=== PATIENT | female | born 1955 | race American Indian/Alaskan Native ===

== ENCOUNTER 2016-12-22 11:21 | Emergency (ER) | payer MEDICAID ==
[2016-12-22 12:33] LABS: Urine Drugs of Abuse Note Disclamer
[2016-12-22 13:07] LABS: Bacteria,Urine 1+ /HPF (Negative); Bilirubin,Urine NEG (Negative); Blood,Urine NEG (Negative); Ketones,Urine 20 mg/dL (Negative); Leukocyte Esterase,Urine NEG (Negative); Mucus,Urine FEW /HPF; Nitrite,Urine NEG (Negative); Urobilinogen,Urine < 2.0 mg/dL (<2.0)
[2016-12-22 13:44] LABS: Basophils % (Auto) 0.4 % (0.0-1.8); Eosinophils % (Auto) 0.2 % (0.0-4.3); Hematocrit 35.6 % (30.3-42.9); Hemoglobin 11.2 gm/dl (10.1-14.3); Mean Corpuscular HGB Conc 32 % (30-34); Mean Corpuscular Volume 73 fl (79-97); Platelet Count 226 K/mm3 (140-440); Red Blood Count 4.87 M/mm3 (3.65-5.03); Red Cell Distribution Width 14.9 % (13.2-15.2); White Blood Count 11.4 K/mm3 (4.5-11.0)
[2016-12-22 13:53] LABS: Mean Corpuscular Hemoglobin 23 pg (28-32)
[2016-12-22 13:56] LABS: Anion Gap 21 mmol/L; BUN/Creatinine Ratio 8.75; Blood Urea Nitrogen 7 mg/dL (7-17); Calcium 9.3 mg/dL (8.4-10.2); Carbon Dioxide 22 mmol/L (22-30); Chloride 99.5 mmol/L (98-107); Glucose 209 mg/dL (65-100); Potassium 3.6 mmol/L (3.6-5.0); Sodium 139 mmol/L (137-145)
--- NOTE | 2016-12-22 16:21 | Emergency Department Report ---
HPI - General Chief Complaint: Psych Time Seen by Provider: 12/22/16 15:07 - HPI HPI: This is a 61-year-old Afro-[place] female presents the emergency department via EMS with complaint of probable anxiety. She says she is unable to sleep and can't sit still. There is no particular thing that she feels she is anxious about but says that she does have a history of anxiety. She also recently was released from [facility] for drug abuse with a history of crack cocaine use. She thinks the fact that she is no longer using drugs is making her anxious. She has a history of previous CVA with left-sided weakness , diabetes, GERD, hypertension, hepatitis C and cirrhosis, brain aneurysm. The patient also says that she fell last night and has some pain to the back of her head and to the right knee. She denies getting knocked out or any loss of consciousness. ED Past Medical Hx - Past Medical History Hx Hypertension: Yes Hx CVA: Yes (LEFT SIDED WEAKNESS) Hx Diabetes: Yes Hx GERD: Yes Hx Liver Disease: Yes (CIRRHOSIS / HEP C) Hx Arthritis: Yes Hx Seizures: Yes Hx Psychiatric Treatment: Yes (depression /BIPOLAR) Additional medical history: brain anuerysm - Surgical History Hx Cholecystectomy: Yes Additional Surgical History: Brain SURGERY - Social History Smoking Status: Current Every Day Smoker - Medications Home Medications: Home Medications Medication Instructions Recorded Confirmed Last Taken Type traMADol [Ultram 50 MG tab] 50 mg PO Q6HR PRN #7 tablet 10/24/15 Unknown Rx ALPRAZolam [Xanax TAB] 0.5 mg PO QHS PRN #6 tablet 12/22/16 Unknown Rx ED Review of Systems ROS: Stated complaint: ANXIETY/FALL Other details as noted in HPI Comment: All other systems reviewed and negative Constitutional: denies: chills, fever Eyes: denies: eye pain, eye discharge, vision change ENT: denies: ear pain, throat pain Respiratory: denies: cough, shortness of breath, wheezing Cardiovascular: denies: chest pain, palpitations Gastrointestinal: denies: abdominal pain, nausea, diarrhea Genitourinary: denies: urgency, dysuria, discharge Musculoskeletal: arthralgia. denies: back pain Skin: denies: rash, lesions Neurological: headache. denies: numbness, paresthesias Psychiatric: anxiety. denies: homicidal thoughts, suicidal thoughts Physical Exam - Physical Exam Vital Signs: Vital Signs 12/22/16 12:22 Temperature 98.1 F Pulse Rate 70 Respiratory 17 Rate Blood Pressure 136/96 O2 Sat by Pulse 100 Oximetry Physical Exam: GENERAL: The patient is well-developed well-nourished. HEENT: Normocephalic. Atraumatic. Extraocular motions are intact. Patient has moist mucous membranes. Pupils equal reactive to light bilaterally. No nystagmus. NECK: Supple. Trachea is midline. CHEST/LUNGS: Clear to auscultation. There is no respiratory distress noted. HEART/CARDIOVASCULAR: Regular. There is no tachycardia. There is no gallop rub or murmur. ABDOMEN: Abdomen is soft, nontender. Patient has normal bowel sounds. There is no abdominal distention. SKIN: There is some mild nonpitting swelling to the anterior right knee with an abrasion in the middle. NEURO: The patient is awake, alert, and oriented. The patient is cooperative. Chronic left upper extremity paralysis. The patient has normal speech. MUSCULOSKELETAL: Mild tenderness to palpation to the right anterior knee. Negative anterior and posterior drawer test. No laxity with valgus or varus stress. There is no limitation range of motion. ED Course Vital Signs 12/22/16 12:22 Temperature 98.1 F Pulse Rate 70 Respiratory 17 Rate Blood Pressure 136/96 O2 Sat by Pulse 100 Oximetry ED Medical Decision Making - Lab Data Result diagrams: 12/22/16 13:14 12/22/16 13:14 - Radiology Data Radiology results: report reviewed, image reviewed interpreted by me: X-ray of the right knee does not show any fracture, dislocation or any acute process. CT of the head does not show any acute process including no hemorrhage, mass, shift, diffuse edema or skull fracture. - Medical Decision Making 61-year-old female presents the emergency department with complaint of anxiety and insomnia. Secondarily she says that she had a fall yesterday and hurt her knee and fell and hit her head. There was no loss of consciousness and no acute neurological deficits. CT of the head did not show any acute bleed, shift , mass or any acute process. X-ray of the right knee does not show any fracture , dislocation or any acute process. The rest the patient's labs are mostly unremarkable do not show any etiology of her symptoms. She was evaluated by the crisis/be over a therapist to did not feel that the patient fit criteria to be maybe [id number] for inpatient treatment for her anxiety. I gave the patient a small/low-dose of Xanax to help her with anxiety and help her get some rest. She'll be given a very small amount of this medication and she does have a substance abuse history and she has been given a referral for the [facility]. She has been instructed to return to the emergency department with any worsening of her symptoms or any acute distress. - Differential Diagnosis anxiety, bipolar disorder, substance abuse Critical Care Time: No Critical care attestation.: If time is entered above; I have spent that time in minutes in the direct care of this critically ill patient, excluding procedure time. ED Disposition Clinical Impression: Anxiety Right knee pain Qualifiers: Chronicity: acute Qualified Code(s): M25.561 - Pain in right knee Head injury Qualifiers: Encounter type: initial encounter Qualified Code(s): S09.90XA - Unspecified injury of head, initial encounter Disposition: TO HOME OR SELFCARE Is pt being admited?: No Condition: Stable Instructions: Minor Head Injury (ED), Arthralgia (ED), Insomnia (ED), Anxiety ( ED) Additional Instructions: These follow-up with your primary care physician in the next few days. I have given you a referral for the [facility] in order to see someone regarding your anxiety and insomnia. I have prescribed for you a very small amount of anti-anxiety medication that also may help you sleep. This medication should only be taken prior to sleep. You've been prescribed a medication that is sedating. Therefore this medication cannot be mixed with alcohol, or taken prior to driving, working, or being responsible for children. I have given you a referral for a local orthopedist, Dr. Lynn, in case she would like to follow up regarding your right knee pain. Prescriptions: ALPRAZolam [Xanax TAB] 0.5 mg PO QHS PRN #6 tablet PRN Reason: Anxiety Referrals: IMELDA LYNN MD [Staff Physician] - 3-5 Days [facility] [Outside] - 3-5 Days Time of Disposition: 18:53
--- NOTE | 2016-12-22 16:36 | Cat Scan Report ---
Cranial CT without contrast. History: Headache after trauma. Findings: Comparison is made to the previous study on October 23, 2015. There is no evidence of acute infarct or hemorrhage. There is evidence of a right frontal craniotomy. Encephalomalacia in the right frontal lobe is unchanged. There is no extension or hemorrhagic transformation. The posterior fossa is normal. The ventricles are unremarkable except for mild ventriculomegaly ex vacuo in the frontal horn of the right lateral ventricle. There are no masses or extra-axial collections. Impression: No acute findings. Post craniotomy changes and right frontal encephalomalacia are stable compared to October 23, 2015.
[2016-12-22] MEDS ORDERED: XANAX PO ONE ×2 (17:34→18:48)
[2016-12-22 20:13] VITALS: BP 130/94
--- NOTE | 2016-12-23 07:22 | XRay Report ---
Right knee 3 views: History: Right knee pain. Findings: Large spur anterosuperior patella. Minimal narrowing of the medial compartment knee joint. Sclerotic adjacent articular surfaces. No fracture. Faint soft tissue calcification medial collateral ligament medial femoral condyle. Impression: Mild degenerative changes medial and patellofemoral compartment knee joint.
== END 2016-12-22 19:20 | disposition home or self-care (01) ==
LOC: ED 11:21
DX: S09.90XA Unspecified injury of head, initial encounter (principal); F41.9 Anxiety disorder, unspecified; M25.561 Pain in right knee; Z86.73 Personal history of transient ischemic attack (TIA), and cerebral infarction without residual deficits; I10 Essential (primary) hypertension; M19.90 Unspecified osteoarthritis, unspecified site; F31.9 Bipolar disorder, unspecified; F17.200 Nicotine dependence, unspecified, uncomplicated
CPT/HCPCS: 29505; 36415; 70450; 73562; 80048; 80307; 81001; 85025; 99285; G0480; 80320

== ENCOUNTER 2017-02-19 15:07 | Emergency (ER) | payer MEDICAID ==
[2017-02-19 16:30] LABS: Anion Gap 24 mmol/L; BUN/Creatinine Ratio 14; Blood Urea Nitrogen 13 mg/dL (7-17); Calcium 8.6 mg/dL (8.4-10.2); Carbon Dioxide 18 mmol/L (22-30); Chloride 103.8 mmol/L (98-107); Glucose 194 mg/dL (65-100); Potassium 4.4 mmol/L (3.6-5.0); Sodium 141 mmol/L (137-145)
[2017-02-19] MEDS ORDERED: TYLENOL PO ONE (16:34)
--- NOTE | 2017-02-19 16:35 | Emergency Department Report ---
ED Seizure HPI - General Chief Complaint: Seizure Stated Complaint: SEIZURE Time Seen by Provider: 02/19/17 16:18 Source: patient, EMS Mode of arrival: Stretcher Limitations: Physical Limitation - History of Present Illness Initial Comments: 62-year-old female with known history of seizure here with complaint of seizure. Patient states she had a tonic-clonic seizure that was witnessed by her grandchildren. She does not know how long it lasted. She denies fevers chills nausea vomiting. She has a mild headache. She denies other symptoms. She states she takes phenobarbital and Dilantin although she cannot tell me her doses. She states she's been off them for a while. She states her last seizure happened approximately 2 months prior. MD Complaint: seizure -: Sudden Description of Episode: tonic-clonic movement Witnessed:: Yes Trauma: No Seizure History: known seizure disorder, history of non-compliance Place: home Possible Precipitating Event: none Associated Symptoms: denies: chest pain, confusion, cough, diaphoresis, fever/ chills, loss of appetite, malaise, rash, shortness of breath, syncope, tongue injury, shoulder dislocation - Related Data Previous Rx's Medication Instructions Recorded Last Taken Type traMADol [Ultram 50 MG tab] 50 mg PO Q6HR PRN #7 tablet 10/24/15 Unknown Rx ALPRAZolam [Xanax TAB] 0.5 mg PO QHS PRN #6 tablet 12/22/16 Unknown Rx Phenytoin [Dilantin] 200 mg PO QHS #60 capsule 02/19/17 Unknown Rx Allergies Allergy/AdvReac Type Severity Reaction Status Date / Time aspirin Allergy Rash Verified 12/22/16 12:17 morphine Allergy Itching Verified 12/22/16 12:17 NSAIDS (Non-Steroidal Allergy Shortness Verified 12/22/16 12:18 Anti-Inflamma of Breath codeine AdvReac Rash Verified 12/22/16 12:17 iv contrast dye AdvReac Swelling Uncoded 12/22/16 12:17 ED Review of Systems ROS: Stated complaint: SEIZURE Other details as noted in HPI Comment: All other systems reviewed and negative Constitutional: denies: chills, fever Eyes: denies: eye pain, vision change ENT: denies: ear pain, throat pain Respiratory: denies: cough, shortness of breath, wheezing Cardiovascular: denies: chest pain, palpitations Endocrine: no symptoms reported Gastrointestinal: denies: abdominal pain, nausea, diarrhea Genitourinary: denies: urgency, dysuria, discharge Musculoskeletal: denies: back pain, joint swelling, arthralgia Skin: denies: rash, lesions Neurological: denies: headache, weakness, paresthesias Psychiatric: denies: anxiety, depression Hematological/Lymphatic: denies: easy bleeding, easy bruising ED Past Medical Hx - Past Medical History Hx Hypertension: Yes Hx CVA: Yes (LEFT SIDED WEAKNESS) Hx Diabetes: Yes Hx GERD: Yes Hx Liver Disease: Yes (CIRRHOSIS / HEP C) Hx Arthritis: Yes Hx Seizures: Yes Hx Psychiatric Treatment: Yes (depression /BIPOLAR) Additional medical history: brain anuerysm - Surgical History Hx Cholecystectomy: Yes Additional Surgical History: Brain SURGERY - Family History Family history: no significant - Social History Smoking Status: Current Every Day Smoker Substance Use Type: None - Medications Home Medications: Home Medications Medication Instructions Recorded Confirmed Last Taken Type traMADol [Ultram 50 MG tab] 50 mg PO Q6HR PRN #7 tablet 10/24/15 Unknown Rx ALPRAZolam [Xanax TAB] 0.5 mg PO QHS PRN #6 tablet 12/22/16 Unknown Rx Phenytoin [Dilantin] 200 mg PO QHS #60 capsule 02/19/17 Unknown Rx ED Physical Exam - General Limitations: Physical Limitation General appearance: alert, in no apparent distress - Head Head exam: Present: atraumatic, normocephalic - Eye Eye exam: Present: normal appearance, PERRL, EOMI. Absent: scleral icterus, conjunctival injection Pupils: Present: normal accommodation - ENT ENT exam: Present: mucous membranes dry - Neck Neck exam: Absent: tenderness, meningismus, lymphadenopathy, thyromegaly - Respiratory Respiratory exam: Present: normal lung sounds bilaterally. Absent: respiratory distress, wheezes - Cardiovascular Cardiovascular Exam: Present: regular rate, normal rhythm, normal heart sounds. Absent: systolic murmur, diastolic murmur, rubs, gallop - GI/Abdominal GI/Abdominal exam: Present: soft, normal bowel sounds. Absent: distended, tenderness - Extremities Exam Extremities exam: Present: normal inspection - Back Exam Back exam: Absent: tenderness, CVA tenderness (R) - Neurological Exam Neurological exam: Present: alert, oriented X3. Absent: motor sensory deficit - Psychiatric Psychiatric exam: Present: normal mood, flat affect. Absent: depressed, agitated, homicidal ideation, suicidal ideation - Skin Skin exam: Present: warm, dry, intact, normal color. Absent: rash ED Course Vital Signs 02/19/17 02/19/17 15:41 16:52 Temperature 97.9 F Pulse Rate 97 H 88 Respiratory 18 17 Rate Blood Pressure 127/77 Blood Pressure 141/88 [Right] O2 Sat by Pulse 100 97 Oximetry ED Medical Decision Making - Lab Data Result diagrams: 02/19/17 16:04 02/19/17 16:04 Laboratory Results - last 24 hr 02/19/17 02/19/17 02/19/17 16:04 16:04 16:04 WBC 11.4 H RBC 5.03 Hgb 11.4 Hct 37.1 MCV 74 L MCH 23 L MCHC 31 RDW 15.2 Plt Count 139 L Lymph % (Auto) 15.0 [place] % (Auto) 5.4 Eos % (Auto) 2.0 Baso % (Auto) 0.6 Lymph # 1.7 [place] # 0.6 Eos # 0.2 Baso # 0.1 Seg Neutrophils % 77.0 H Seg Neutrophils # 8.8 H Sodium 141 Potassium 4.4 Chloride 103.8 Carbon Dioxide 18 L Anion Gap 24 BUN 13 Creatinine 0.9 Estimated GFR > 60 BUN/Creatinine Ratio 14 Glucose 194 H Calcium 8.6 Phenytoin 1.5 L - Medical Decision Making 62-year-old female with known seizure disorder here with seizure. No precipitating event. Likely related to not taking meds. Plan to check Dilantin level. Since she cannot tell me her phenobarbital dose do not plan to reinitiate this medication. Does not appear on her med list here in the emergency department. Plan to restart the patient's Dilantin. Plan to give her 1000 mg of fosphenytoin in the emergency department. She is encouraged to follow up with her primary care doctor. She should follow up as soon as possible to reestablish her seizure medications. Portions of this chart were dictated with dictation software. There may be dictation errors contained within this note. Critical care attestation.: If time is entered above; I have spent that time in minutes in the direct care of this critically ill patient, excluding procedure time. ED Disposition Clinical Impression: Seizure Disposition: [id number] TO HOME OR SELFCARE Is pt being admited?: No Condition: Stable Instructions: Recurrent Seizures Adult (ED) Additional Instructions: Please follow-up with your primary care doctor to reestablish or seizure medications. Prescriptions: Phenytoin [Dilantin] 200 mg PO QHS #60 capsule Referrals: PRIMARY CARE,MD [Primary Care Provider] - 3-5 Days
[2017-02-19 16:52] LABS: Basophils % (Auto) 0.6 % (0.0-1.8); Hematocrit 37.1 % (30.3-42.9); Hemoglobin 11.4 gm/dl (10.1-14.3); Mean Corpuscular HGB Conc 31 % (30-34); Mean Corpuscular Volume 74 fl (79-97); Red Blood Count 5.03 M/mm3 (3.65-5.03); Red Cell Distribution Width 15.2 % (13.2-15.2); White Blood Count 11.4 K/mm3 (4.5-11.0)
[2017-02-19 16:54] LABS: Mean Corpuscular Hemoglobin 23 pg (28-32)
[2017-02-19 17:33] LABS: Platelet Count 139 K/mm3 (140-440)
[2017-02-19] MEDS ORDERED: CEREBYX 1,000 MG.PE in NACL 0.9% 100 ML IV ONE (17:59)
[2017-02-19 21:32] VITALS: BP 129/75
== END 2017-02-19 21:33 | disposition home or self-care (01) ==
LOC: ED 15:07
DX: G40.909 Epilepsy, unspecified, not intractable, without status epilepticus (principal); F17.200 Nicotine dependence, unspecified, uncomplicated; Z86.73 Personal history of transient ischemic attack (TIA), and cerebral infarction without residual deficits; K21.9 Gastro-esophageal reflux disease without esophagitis; E11.9 Type 2 diabetes mellitus without complications; M19.90 Unspecified osteoarthritis, unspecified site; Z88.6 Allergy status to analgesic agent; Z88.5 Allergy status to narcotic agent; Z88.8 Allergy status to other drugs, medicaments and biological substances
CPT/HCPCS: 36415; 80048; 80185; 85025; 96365; 99284; Q2009